=== PATIENT | female | born 1960 | race Caucasian/White ===

== ENCOUNTER 2019-04-05 09:28 | Emergency (ER) | payer OTHER ==
--- NOTE | 2019-04-05 09:32 | ERPHSYRPT ---
- History of Present Illness Time Seen by Provider: 04/05/19 09:32 Historian: patient Exam Limitations: no limitations Physician History: 59 y/o white female presents with substernal central cp without radiation described as an ache. cp began at 0830. pt did not sleep well. pt states she has been on the keto diet and has had problems with low potassium. pts father had heart dz but she has not had any. pt denies soa. pt denies abd pain. Timing/Duration: today Activities at Onset: none Quality: aching, pressure Location: substernal, central Chest Pain Radiation: no radiation Severity of Pain-Max: mild Severity of Pain-Current: mild Modifying Factors: Improves With: nothing Associated Symptoms: denies symptoms Prior Chest Pain/Cardiac Workup: no prior chest pain Nitro Today/Relief: no nitro taken today Aspirin Treatment Today: 81 mg x 4, provided by ED Allergies/Adverse Reactions: No Known Drug Allergies Allergy (Unverified 01/29/15 15:17) - Review of Systems Constitutional: No Symptoms Eyes: No Symptoms Ears, Nose, & Throat: No Symptoms Respiratory: No Symptoms Cardiac: Chest Pain Abdominal/Gastrointestinal: No Symptoms Genitourinary Symptoms: No Symptoms Musculoskeletal: No Symptoms Skin: No Symptoms Neurological: No Symptoms Psychological: No Symptoms Endocrine: No Symptoms Hematologic/Lymphatic: No Symptoms Immunological/Allergic: No Symptoms All Other Systems: Reviewed and Negative - Past Medical History Pertinent Past Medical History: Yes Neurological History: No Pertinent History ENT History: No Pertinent History Cardiac History: No Pertinent History Respiratory History: No Pertinent History Endocrine Medical History: No Pertinent History Musculoskeletal History: No Pertinent History GI Medical History: No Pertinent History History: No Pertinent History Psycho-Social History: No Pertinent History Female Reproductive Disorders: No Pertinent History Other Medical History: Pt notes being in L boot since April. L arch dropped also. - Past Surgical History Past Surgical History: Yes Neuro Surgical History: No Pertinent History Cardiac: No Pertinent History Respiratory: No Pertinent History Gastrointestinal: No Pertinent History Genitourinary: No Pertinent History Musculoskeletal: Other Female Surgical History: Lumpectomy Other Surgical History: left foot bunionectomy - Social History Smoking Status: Never smoker Exposure to second hand smoke: No Drug Use: none - Nursing Vital Signs Nursing Vital Signs: Initial Vital Signs Temperature 97.8 F 04/05/19 09:28 Pulse Rate 84 04/05/19 09:28 Respiratory Rate 18 04/05/19 09:28 Blood Pressure 137/92 04/05/19 09:28 O2 Sat by Pulse Oximetry 100 04/05/19 09:28 Pain Scale Pain Intensity 5 - Physical Exam General Appearance: no apparent distress, alert, anxiety Eye Exam: PERRL/EOMI, eyes nml inspection Ears, Nose, Throat Exam: normal ENT inspection, moist mucous membranes Neck Exam: normal inspection, non-tender, supple, full range of motion Respiratory Exam: normal breath sounds, chest tenderness, lungs clear, airway intact, No respiratory distress Cardiovascular Exam: regular rate/rhythm, normal heart sounds, normal peripheral pulses Gastrointestinal/Abdomen Exam: soft, normal bowel sounds, No tenderness Pelvic Exam: not done Rectal Exam: not done Back Exam: normal inspection, normal range of motion, No CVA tenderness, No vertebral tenderness Extremity Exam: normal inspection Neurologic Exam: alert, oriented x 3, cooperative, continuing education director II-XII nml as tested, normal mood/affect Skin Exam: normal color, warm, dry Lymphatic Exam: No adenopathy O2 Delivery: Room Air - Course Nursing assessment & vital signs reviewed: Yes EKG Interpreted by Me: RATE ([id number]), NORMAL AXIS, NORMAL INTERVALS, NORMAL QRS, Other (atrial escape rhythm; no acute ischemic changes.) Ordered Tests: Active Orders 24 hr Category Date Time Status Marketing Sales Supervisor STAT Care 04/05/19 09:38 Active EKG-ER Only STAT Care 04/05/19 09:36 Active IV Insertion STAT Care 04/05/19 09:36 Active CHEST 1 VIEW (PORTABLE) Stat Exams 04/05/19 10:03 Completed CBC W DIFF Stat Lab 04/05/19 10:04 Completed CMP Stat Lab 04/05/19 10:04 Completed NT PRO BNP Stat Lab 04/05/19 10:04 Completed Medication Summary Discontinued Medications Generic Name Dose Route Start Last Admin Trade Name Freq PRN Reason Stop Dose Admin Aspirin 324 mg 04/05/19 09:36 04/05/19 10:20 Baby Aspirin 81 Mg Chew PO 04/05/19 09:37 324 mg STAT ONE Administration Aspirin Confirm 04/05/19 10:19 Baby Aspirin 81 Mg Chew Administered 04/05/19 10:20 Dose 324 mg .ROUTE .EverybodyCar-MED ONE Lab/Rad Data: Laboratory Result Diagrams 04/05/19 10:04 04/05/19 10:04 Laboratory Results 04/05/19 04/05/19 Range/Units 10:04 10:04 WBC 4.2 (4.0-10.5) K/mm3 RBC 4.73 (4.1-5.4) M/mm3 Hgb 14.0 (12.0-16.0) gm/dl Hct 43.2 (35-47) % MCV 91.3 (78-100) fl MCH 29.6 (26-32) pg MCHC 32.4 (32-36) g/dl RDW 14.2 H (11.5-14.0) % Plt Count 178 (150-450) K/mm3 MPV 10.8 H (6-9.5) fl Gran % 44.5 (36.0-66.0) % Eos # (Auto) 0.12 (0-0.5) Absolute Lymphs (auto) 1.81 (1.0-4.6) Absolute Monos (auto) 0.41 (0.0-1.3) Lymphocytes % 42.8 (24.0-44.0) % Monocytes % 9.7 (0.0-12.0) % Eosinophils % 2.8 (0.00-5.0) % Basophils % 0.2 (0.0-0.4) % Absolute Granulocytes 1.88 (1.4-6.9) Basophils # 0.01 (0-0.4) Sodium 142 (137-145) mmol/L Potassium 3.7 (3.5-5.1) mmol/L Chloride 104 (98-107) mmol/L Carbon Dioxide 24 (22-30) mmol/L Anion Gap 16.7 H (5-15) MEQ/L BUN 22 H (7-17) mg/dL Creatinine 0.71 (0.52-1.04) mg/dL Estimated GFR > 60.0 ML/MIN Glucose 105 (74-106) mg/dL Calcium 10.1 (8.4-10.2) mg/dL Total Bilirubin 0.40 (0.2-1.3) mg/dL AST 22 (14-36) U/L ALT 19 (0-35) U/L Alkaline Phosphatase 76 (38-126) U/L NT-Pro-B Natriuret Pep 55.2 (0-900) pg/mL Serum Total Protein 7.8 (6.3-8.2) g/dL Albumin 4.7 (3.5-5.0) g/dL - Progress Progress: improved, re-examined Air Movement: good Progress Note: 04/05/19 11:23 cxr- no acute process Blood Culture(s) Obtained: No Antibiotics given: No Counseled pt/family regarding: lab results, diagnosis, need for follow-up, rad results - Departure Departure Disposition: Home Clinical Impression: Chest pain Condition: Stable Critical Care Time: No Referrals: RUTH FOWLER [Primary Care Provider] - Additional Instructions: follow up with primary doctor for further management
[2019-04-05] MEDS ORDERED: BABY ASPIRIN 81 MG CHEW PO ONE (09:36)
[2019-04-05 10:12] LABS: BASOPHIL % 0.2 % (0.0-0.4); Basophil (Absolute #) 0.01 (0-0.4); Eosinophil % 2.8 % (0.00-5.0); Eosinophil (Absolute #) 0.12 (0-0.5); Granulocyte Absolute (ANC) 1.88 (1.4-6.9); Granulocytes % 44.5 % (36.0-66.0); Hematocrit 43.2 % (35-47); Lymphocyte (Absolute #) 1.81 (1.0-4.6); Lymphocytes % 42.8 % (24.0-44.0); Mean Cell Volume 91.3 fl (78-100); Mean Corpuscular Hemoglobin 29.6 pg (26-32); Mean Corpuscular Hgb Concent. 32.4 g/dl (32-36); Mean Platelet Volume 10.8 fl (6-9.5); Monocyte (Absolute #) 0.41 (0.0-1.3); Monocytes % 9.7 % (0.0-12.0); Platelet Count 178 K/mm3 (150-450); Red Blood Count 4.73 M/mm3 (4.1-5.4); Red Cell Distribution Width 14.2 % (11.5-14.0); White Blood Count 4.2 K/mm3 (4.0-10.5)
--- NOTE | 2019-04-05 10:16 | XRAY ---
Indication: Chest pain. Comparison: January 29, 2015. Portable chest again demonstrates normal heart and lungs. Bony thorax intact again with mild scoliosis. No new/acute findings.
[2019-04-05] MEDS ORDERED: BABY ASPIRIN 81 MG CHEW ONE (10:19)
[2019-04-05 10:35] LABS: ALBUMIN 4.7 g/dL (3.5-5.0); ALKALINE PHOSPHATASE 76 U/L (38-126); ANION GAP 16.7 MEQ/L (5-15); BLOOD UREA NITROGEN 22 mg/dL (7-17); CHLORIDE 104 mmol/L (98-107); Calcium 10.1 mg/dL (8.4-10.2); Carbon Dioxide 24 mmol/L (22-30); Creatinine 1 0.71 mg/dL (0.52-1.04); Glucose 105 mg/dL (74-106); NT PRO BNP 55.2 pg/mL (0-900); Potassium 3.7 mmol/L (3.5-5.1); SGOT/AST 22 U/L (14-36); SGPT/ALT 19 U/L (0-35); SODIUM 142 mmol/L (137-145); Total Protein 7.8 g/dL (6.3-8.2)
[2019-04-05 11:07] VITALS: O2SAT 98
[2019-04-05 11:48] VITALS: BP 121/76; PULSE 88
== END 2019-04-05 11:46 | disposition home or self-care (01) ==
LOC: ED 09:28
DX: R07.9 Chest pain, unspecified (principal)
CPT/HCPCS: 36000; 36415; 71045; 80053; 83880; 85025; 93005; 93041; 99284; A9270-GY

== ENCOUNTER 2024-01-10 06:01 | Day surgery (SDC) | payer OTHER ==
[2024-01-10] MEDS: Lactated Ringers 1,000 ML IV SCH (06:25)
[2024-01-10 06:46] VITALS: RESP 16
[2024-01-10] MEDS ORDERED: DIPRIVAN 200 MG/20 ML IV ONE ×2 (07:26→07:41)
[2024-01-10] MEDS ORDERED: ROBINUL ONE (07:33)
[2024-01-10] MEDS ORDERED: ATROPINE SULFATE 1MG ONE (07:35)
[2024-01-10] MEDS ORDERED: SUBLIMAZE 100 MCG/2 ML ONE (07:35)
[2024-01-10 08:38] VITALS: BP 135/71; PULSE 70; TEMP 97.2; O2SAT 98
--- NOTE | 2024-01-11 07:51 | OP ---
SURGERY DATE/TIME: 01/10/2024 0733 PREOPERATIVE DIAGNOSIS: Screening exam. POSTOPERATIVE DIAGNOSIS: Normal colon. PROCEDURE: Colonoscopy. SURGEON: Dr. Burrows. ANESTHESIA: Medications given by anesthesia department. HISTORY: The patient is a 63-year-old white female presenting now for screening colon exam. The patient was appraised of the risks of the procedure including the risk of perforation, phlebitis, untoward reaction to medication, bleeding and missed lesions. The patient verbalized her understanding and desired to have the procedure performed. DESCRIPTION OF PROCEDURE: The patient was given medications by the anesthesia department. She had continuous pulse oximetry, ECG monitoring and intermittent blood pressure monitoring during the examination. She was placed in the left lateral decubitus position. A digital rectal examination was performed and revealed normal anal sphincter tone and no masses. The flexible Olympus pediatric colonoscope was used to intubate the rectum. A view of the colon was developed sequentially to the cecum. No mucosal lesions were encountered. The scope was removed from the patient who tolerated the procedure well and was sent back to OP recovery in good condition. The prep was noted to be fair to good.
== END 2024-01-10 08:50 | disposition home or self-care (01) ==
LOC: SDC 06:01
PROVIDERS: ATTEND Family Medicine
DX: Z12.11 Encounter for screening for malignant neoplasm of colon (principal)
CPT/HCPCS: J0461; J2704; J3010